=== PATIENT | male | born 1985 | race African-American/Black ===

== ENCOUNTER 2022-01-09 10:57 | Emergency (ER) | payer MEDICAID ==
[~2022-01-09] VITALS: Ht 188 cm; Wt 80.9 kg
[2022-01-09] MEDS ORDERED: PALI3TAB PO (11:47)
[2022-01-09 12:20] LABS: CHLORIDE 86 mEq/L (98-107)
[2022-01-09 12:26] LABS: HEMOGLOBIN. 8.4 g/dL (14.0-18.0); MEAN CORPUSCULAR HEMOGLOBIN 25.2 pg (28.0-32.0); MEAN CORPUSCULAR VOLUME 78.5 fL (80.0-94.0); MEAN PLATELET VOLUME 10.8 fl (7.4-10.4); PLATELET 113 x1000/uL (130-400); RED BLOOD CELL COUNT 3.31 mill/uL (4.7-6.1); RED CELL DISTRIBUTION WIDTH 15.3 % (11.6-14.6)
[2022-01-09] MEDS ORDERED: POTASSIUM CHLORIDE 20MEQ TABLET SR PO STA (12:43)
[2022-01-09 13:22] LABS: PLATELET ESTIMATE SLIGHTLY DECREASED
[2022-01-09] MEDS ORDERED: POTASSIUM CHLORIDE 20MEQ TABLET SR PO NR (16:00)
[2022-01-09 16:33] LABS: CLARITY URINE CLOUDY (CLEAR); COLOR URINE DARK YELLOW (YELLOW); KETONES URINE TRACE (NEGATIVE); LEUKOCYTE ESTERASE URINE 3+ (NEGATIVE); NITRITE URINE POSITIVE (NEGATIVE); OCCULT BLOOD URINE NEGATIVE (NEGATIVE); PROTEIN URINE 1+ (NEGATIVE); SPECIFIC GRAVITY URINE 1.019 (1.005-1.030)
[2022-01-09] MEDS ORDERED: SODIUM CHLORIDE 0.9% 1,000 ML IV ONE (17:00)
[2022-01-09] MEDS ORDERED: CEFTRIAXONE 1 G PREMIX 50 ML IV ONE (17:30)
[2022-01-09] MEDS ORDERED: NITR100C MT (18:15)
[2022-01-09] MEDS ORDERED: ACET-2708 PO (18:15)
[2022-01-09] MEDS ORDERED: POTA10CA42 PO (18:17)
[2022-01-09] MEDS ORDERED: POTA-79 PO (18:28)
[2022-01-09 19:00] VITALS: BP 109/70
== END 2022-01-09 19:27 | disposition home or self-care (01) ==
LOC: ER 10:57
DX: E87.6 Hypokalemia (principal); J06.9 Acute upper respiratory infection, unspecified; N39.0 Urinary tract infection, site not specified; D61.818 Other pancytopenia
CPT/HCPCS: 36415; 71045; 80053; 81003; 82962; 85025; 87077; 87086; 87186; 93005; 96361; 96365; 99285; J0696

== ENCOUNTER 2022-06-27 12:44 | Inpatient (IN) | payer MEDICAID ==
[~2022-06-27] VITALS: Ht 188 cm; Wt 64.9 kg
[2022-06-27] VITALS: BP 90/44
[~2022-06-27 12:44] MED LIST: ACET-2708 PO; NITR100C MT; PALI3TAB PO; POTA-79 PO
[2022-06-27 14:38] LABS: CHLORIDE 94 mEq/L (98-107)
[2022-06-27 14:39] LABS: HEMATOCRIT. 34.5 % (42.0-52.0); HEMOGLOBIN. 11.1 g/dL (14.0-18.0); MEAN CORPUSCULAR HEMOGLOBIN 27.3 pg (28.0-32.0); RED BLOOD CELL COUNT 4.06 mill/uL (4.7-6.1); RED CELL DISTRIBUTION WIDTH 17.8 % (11.6-14.6)
[2022-06-27 14:48] LABS: INR 1.1; PROTHROMBIN TIME 11.4 sec (9.6-11.0)
[2022-06-27 14:58] LABS: PLATELET 190 x1000/uL (130-400)
[2022-06-27 15:05] LABS: PLATELET ESTIMATE NORMAL
[2022-06-27] MEDS ORDERED: POTASSIUM CHLORIDE 20MEQ TABLET SR PO NR (15:15)
[2022-06-27] MEDS ORDERED: SODIUM CHLORIDE 0.9% 1,000 ML IV ONE (15:15)
[2022-06-27 21:00] VITALS: BP 100/66
[2022-06-27] MEDS ORDERED: CEFTRIAXONE 1 G PREMIX 50 ML IV SCH (22:30)
[2022-06-27] MEDS ORDERED: CEFTRIAXONE 1,000 MG in DEXTROSE 5% WATER 50 ML IV SCH (23:30)
[2022-06-28] MEDS ORDERED: AZITHROMYCIN 500 MG in DEXT 5% WATER 250 ML IV SCH ×2
[2022-06-28] MEDS: SODIUM CHL 0.9% + KCL 20MEQ/L 1,000 ML IV SCH ×3 (00:04→18:41)
[2022-06-28] MEDS: CEFTRIAXONE 1,000 MG in DEXTROSE 5% WATER 50 ML IV SCH (01:55)
[2022-06-28] MEDS: AZITHROMYCIN 500 MG in DEXT 5% WATER 250 ML IV SCH (02:53)
[2022-06-28 04:00] VITALS: BP 97/58
[2022-06-28 08:18] VITALS: BP 97/61
[2022-06-28 08:28] LABS: CHLORIDE 101 mEq/L (98-107)
[2022-06-28 08:31] LABS: HEMATOCRIT. 25.1 % (42.0-52.0); HEMOGLOBIN. 8.2 g/dL (14.0-18.0); MEAN CORPUSCULAR HEMOGLOBIN 27.4 pg (28.0-32.0); MEAN CORPUSCULAR VOLUME 84.4 fL (80.0-94.0); MEAN PLATELET VOLUME 10.3 fl (7.4-10.4); PLATELET 124 x1000/uL (130-400); RED BLOOD CELL COUNT 2.97 mill/uL (4.7-6.1); RED CELL DISTRIBUTION WIDTH 17.2 % (11.6-14.6)
[2022-06-28 12:00] VITALS: BP 93/56
[2022-06-28 12:05] LABS: PLATELET ESTIMATE SLIGHTLY DECREASED
[2022-06-28 16:00] VITALS: BP 96/67
[2022-06-28 20:00] VITALS: BP 118/76
[2022-06-28] MEDS ORDERED: IOHEXOL-300 100 ML BOTTLE ONE (20:35)
[2022-06-29] VITALS (7 sets, daily range): BP systolic 90–116; BP diastolic 43–72
[2022-06-29] MEDS: CEFTRIAXONE 1,000 MG in DEXTROSE 5% WATER 50 ML IV SCH (00:22)
[2022-06-29] MEDS: ACETAMINOPHEN 325MG TABLET PO PRN ×2 (01:01→18:09)
[2022-06-29] MEDS: AZITHROMYCIN 500 MG in DEXT 5% WATER 250 ML IV SCH (03:23)
[2022-06-29] MEDS: SODIUM CHL 0.9% + KCL 20MEQ/L 1,000 ML IV SCH ×2 (04:46→20:18)
[2022-06-29 13:33] LABS: CLARITY URINE CLEAR (CLEAR); COLOR URINE YELLOW (YELLOW); KETONES URINE NEGATIVE (NEGATIVE); LEUKOCYTE ESTERASE URINE NEGATIVE (NEGATIVE); NITRITE URINE NEGATIVE (NEGATIVE); OCCULT BLOOD URINE NEGATIVE (NEGATIVE); PH URINE 6.5 (4.5-8.0); PROTEIN URINE NEGATIVE (NEGATIVE); SPECIFIC GRAVITY URINE 1.016 (1.005-1.030)
[2022-06-29 13:54] LABS: *AMPHETAMINES SCREEN URINE NEGATIVE (NEGATIVE); *BARBITURATES SCREEN URINE NEGATIVE (NEGATIVE); *BENZODIAZEPINES SCREEN URINE NEGATIVE (NEGATIVE); *COCAINE SCREEN URINE NEGATIVE (NEGATIVE); CANNABINOID URINE SCREEN NEGATIVE (NEGATIVE); METHADONE URINE SCREEN NEGATIVE (NEGATIVE); OPIATES URINE SCREEN NEGATIVE (NEGATIVE); PHENCYCLIDINE URINE SCREEN NEGATIVE (NEGATIVE)
[2022-06-29] MEDS: MAGNESIUM OXIDE 400MG TABLET PO SCH (20:09)
[2022-06-30] VITALS: BP 104/51
[2022-06-30] MEDS: CEFTRIAXONE 1,000 MG in DEXTROSE 5% WATER 50 ML IV SCH (00:08)
[2022-06-30] MEDS: SODIUM CHL 0.9% + KCL 20MEQ/L 1,000 ML IV SCH ×3 (01:00→23:41)
[2022-06-30] MEDS: AZITHROMYCIN 500 MG in DEXT 5% WATER 250 ML IV SCH (03:38)
[2022-06-30 04:00] VITALS: BP 129/64
[2022-06-30 08:00] VITALS: BP 99/69
[2022-06-30] MEDS: MAGNESIUM OXIDE 400MG TABLET PO SCH (08:53)
[2022-06-30 09:20] LABS: HEMATOCRIT. 22.1 % (42.0-52.0); HEMOGLOBIN. 7.1 g/dL (14.0-18.0); MEAN CORPUSCULAR VOLUME 83.8 fL (80.0-94.0); MEAN PLATELET VOLUME 10.9 fl (7.4-10.4); PLATELET 122 x1000/uL (130-400); RED BLOOD CELL COUNT 2.64 mill/uL (4.7-6.1); RED CELL DISTRIBUTION WIDTH 17.4 % (11.6-14.6)
[2022-06-30 09:31] LABS: CHLORIDE 102 mEq/L (98-107)
[2022-06-30 12:00] VITALS: BP 94/59
[2022-06-30 12:38] LABS: PLATELET ESTIMATE SLIGHTLY DECREASED
[2022-06-30 14:08] LABS: HIV 1 ABS Reactive (Non Reactive); HIV 2 ABS Non Reactive (Non Reactive); HIV SCREEN 4G Preliminary Reactive (Non Reactive); INTERPRETATION HIV-1 Positive (.)
[2022-06-30 16:00] VITALS: BP 103/61
[2022-06-30 20:00] VITALS: BP 100/66
[2022-06-30] MEDS: GUAIFENESIN-DM 200MG-20MG/10ML UDC PO PRN (20:40)
[2022-07-01] VITALS: BP 111/67
[2022-07-01] MEDS: CEFTRIAXONE 1,000 MG in DEXTROSE 5% WATER 50 ML IV SCH (01:00)
[2022-07-01] MEDS: AZITHROMYCIN 500 MG in DEXT 5% WATER 250 ML IV SCH (02:55)
[2022-07-01] MEDS: GUAIFENESIN-DM 200MG-20MG/10ML UDC PO PRN ×2 (02:59→08:47)
[2022-07-01 04:00] VITALS: BP 104/62
[2022-07-01] MEDS: ACETAMINOPHEN 325MG TABLET PO PRN ×2 (05:16→16:12)
[2022-07-01 08:00] VITALS: BP 91/55
[2022-07-01] MEDS: MAGNESIUM OXIDE 400MG TABLET PO SCH (08:47)
[2022-07-01] MEDS: SODIUM CHL 0.9% + KCL 20MEQ/L 1,000 ML IV SCH ×2 (08:48→16:13)
[2022-07-01 12:00] VITALS: BP 94/53
[2022-07-01 12:08] LABS: HEMATOCRIT. 22.6 % (42.0-52.0); HEMOGLOBIN. 7.4 g/dL (14.0-18.0); MEAN CORPUSCULAR HEMOGLOBIN 27.5 pg (28.0-32.0); MEAN CORPUSCULAR VOLUME 84.3 fL (80.0-94.0); MEAN PLATELET VOLUME 10.5 fl (7.4-10.4); PLATELET 116 x1000/uL (130-400); RED BLOOD CELL COUNT 2.69 mill/uL (4.7-6.1)
[2022-07-01 13:09] LABS: PLATELET ESTIMATE SLIGHTLY DECREASED
[2022-07-01 16:00] VITALS: BP 91/60
[2022-07-01 20:00] VITALS: BP 91/60
[2022-07-02] VITALS: BP 120/82
[2022-07-02] MEDS: GUAIFENESIN-DM 200MG-20MG/10ML UDC PO PRN ×2 (00:07→21:42)
[2022-07-02] MEDS: CEFTRIAXONE 1,000 MG in DEXTROSE 5% WATER 50 ML IV SCH (01:05)
[2022-07-02] MEDS: AZITHROMYCIN 500 MG in DEXT 5% WATER 250 ML IV SCH (02:27)
[2022-07-02] MEDS: SODIUM CHL 0.9% + KCL 20MEQ/L 1,000 ML IV SCH ×3 (03:00→23:37)
[2022-07-02 04:00] VITALS: BP 90/46
[2022-07-02 08:00] VITALS: BP 96/65
[2022-07-02] MEDS: MAGNESIUM OXIDE 400MG TABLET PO SCH (09:16)
[2022-07-02 12:00] VITALS: BP 91/56
[2022-07-02] MEDS ORDERED: ONDANSETRON HCL 4MG/2ML INJ IV PRN (14:15)
[2022-07-02 16:00] VITALS: BP 97/59
[2022-07-02] MEDS: ACETAMINOPHEN 325MG TABLET PO PRN (17:13)
[2022-07-02 20:00] VITALS: BP 109/52
[2022-07-03] VITALS: BP 114/62
[2022-07-03 04:00] VITALS: BP 105/44
[2022-07-03 08:00] VITALS: BP 98/65
[2022-07-03] MEDS: MAGNESIUM OXIDE 400MG TABLET PO SCH (09:45)
[2022-07-03 12:00] VITALS: BP 96/58
[2022-07-03] MEDS: SODIUM CHL 0.9% + KCL 20MEQ/L 1,000 ML IV SCH (12:58)
[2022-07-03 14:07] LABS: HBSAG SCREEN Negative (Negative)
[2022-07-03 16:00] VITALS: BP 91/56
[2022-07-03 20:00] VITALS: BP 96/57
[2022-07-04] VITALS: BP 99/63
[2022-07-04 04:00] VITALS: BP 94/53
[2022-07-04] MEDS: SODIUM CHL 0.9% + KCL 20MEQ/L 1,000 ML IV SCH ×2 (04:10→15:08)
[2022-07-04 08:00] VITALS: BP 90/59
[2022-07-04] MEDS: MAGNESIUM OXIDE 400MG TABLET PO SCH (09:02)
[2022-07-04 10:07] LABS: % CD 3 POS. LYMPHOCYTES 65.3 % (57.5-86.2); % CD 4 POS. LYMPHOCYTES 0.9 % (30.8-58.5); % CD 8 POS. LYMPH 58.6 % (12.0-35.5); CD4/CD8 RATIO 0.02 (0.92-3.72)
[2022-07-04 12:00] VITALS: BP 88/51
[2022-07-04] MEDS ORDERED: SODIUM CHLORIDE 0.9% 500 ML IV ONE (13:00)
[2022-07-04 13:07] LABS: ABSOLUTE CD 3 65 /uL (622-2402); ABSOLUTE CD 4 HELPER 1 /uL (359-1519); ABSOLUTE CD 8 SUPPRESSOR 59 /uL (109-897); ABSOLUTE LYMPHOCYTES 0.1 x10E3/uL (0.7-3.1); ABSOLUTE MONOCYTES 0.2 x10E3/uL (0.1-0.9); ABSOLUTE NEUTROPHILS 0.6 x10E3/uL (1.4-7.0); BASOPHILS 0 % (Not Estab.); HEMATOCRIT 19.7 % (37.5-51.0); HEMATOLOGY COMMENT Note: (.); HEMOGLOBIN 6.1 g/dL (13.0-17.7); IMMATURE GRANULOCYTES 0 % (Not Estab.); LYMPHOCYTES 15 % (Not Estab.); MEAN CORPUSCULAR HEMOGLOBIN 26.5 pg (26.6-33.0); MEAN CORPUSCULAR VOLUME 86 fL (79-97); MONOCYTES 21 % (Not Estab.); NEUTROPHILS 64 % (Not Estab.); PLATELETS 164 x10E3/uL (150-450); RED CELL DISTRIBUTION WIDTH 16.6 % (11.6-15.4)
[2022-07-04 16:00] VITALS: BP 100/61
[2022-07-04 20:00] VITALS: BP 84/54
[2022-07-05] VITALS: BP 86/52
[2022-07-05] MEDS: SODIUM CHL 0.9% + KCL 20MEQ/L 1,000 ML IV SCH ×2 (00:52→10:52)
[2022-07-05 04:00] VITALS: BP 85/51
[2022-07-05] MEDS ORDERED: ATOVAQUONE 750MG/5ML PACKET PO SCH (07:10)
[2022-07-05 08:00] VITALS: BP 93/57
[2022-07-05] MEDS: MAGNESIUM OXIDE 400MG TABLET PO SCH (08:26)
[2022-07-05 12:00] VITALS: BP 90/52
[2022-07-05] MEDS: ACETAMINOPHEN 325MG TABLET PO PRN (12:16)
[2022-07-05] MEDS: ATOVAQUONE 750 MG/5 ML UDC PO SCH ×2 (12:16→16:50)
[2022-07-05 16:00] VITALS: BP 90/52
[2022-07-05 20:00] VITALS: BP 103/48
[2022-07-05 22:20] LABS: CHLORIDE 103 mEq/L (98-107)
[2022-07-06] VITALS (9 sets, daily range): BP systolic 90–165; BP diastolic 49–89
[2022-07-06] MEDS: ATOVAQUONE 750 MG/5 ML UDC PO SCH ×3 (07:10→16:34)
[2022-07-06 07:37] LABS: HEMATOCRIT. 21.9 % (42.0-52.0); HEMOGLOBIN. 7.2 g/dL (14.0-18.0); MEAN CORPUSCULAR HEMOGLOBIN 27.5 pg (28.0-32.0); MEAN CORPUSCULAR VOLUME 83.7 fL (80.0-94.0); MEAN PLATELET VOLUME 10.1 fl (7.4-10.4); PLATELET 176 x1000/uL (130-400); RED BLOOD CELL COUNT 2.62 mill/uL (4.7-6.1); RED CELL DISTRIBUTION WIDTH 16.4 % (11.6-14.6)
[2022-07-06 08:45] LABS: PLATELET ESTIMATE NORMAL
[2022-07-06] MEDS: MAGNESIUM OXIDE 400MG TABLET PO SCH (09:53)
[2022-07-06] MEDS ORDERED: LIDOCAINE HCL 1% 10 MG/ML 10ML VIAL ONE (10:48)
[2022-07-06] MEDS ORDERED: LIDOCAINE HCL 1% 50ML VIAL (10MG/ML) ONE (13:21)
[2022-07-06] MEDS ORDERED: PROPOFOL 200MG/20ML VIAL IV ONE (13:22)
[2022-07-06] MEDS ORDERED: FENTANYL CITRATE/PF 50MCG/ML 2ML VIAL ONE (13:22)
[2022-07-06] MEDS ORDERED: MIDAZOLAM HCL 2 MG/2 ML VIAL ONE (13:22)
[2022-07-07] VITALS: BP 87/49
[2022-07-07 04:00] VITALS: BP 91/60
[2022-07-07] MEDS: ATOVAQUONE 750 MG/5 ML UDC PO SCH ×2 (06:16→17:29)
[2022-07-07 08:00] VITALS: BP 90/48
[2022-07-07] MEDS: MAGNESIUM OXIDE 400MG TABLET PO SCH (08:45)
[2022-07-07 12:00] VITALS: BP 94/56
[2022-07-07 13:56] LABS: VITAMIN B12 SERUM 544 pg/mL (211-911)
[2022-07-07 16:00] VITALS: BP 91/58
[2022-07-07 20:00] VITALS: BP 91/55
[2022-07-08] VITALS: BP 89/55
[2022-07-08 04:00] VITALS: BP 89/55
[2022-07-08 06:26] LABS: HEMATOCRIT. 24.2 % (42.0-52.0); HEMOGLOBIN. 7.9 g/dL (14.0-18.0); MEAN CORPUSCULAR HEMOGLOBIN 27.7 pg (28.0-32.0); MEAN CORPUSCULAR VOLUME 84.4 fL (80.0-94.0); MEAN PLATELET VOLUME 10.2 fl (7.4-10.4); PLATELET 158 x1000/uL (130-400); RED BLOOD CELL COUNT 2.86 mill/uL (4.7-6.1); RED CELL DISTRIBUTION WIDTH 16.4 % (11.6-14.6)
[2022-07-08 06:37] LABS: CHLORIDE 101 mEq/L (98-107)
[2022-07-08 08:00] VITALS: BP 92/52
[2022-07-08] MEDS: MAGNESIUM OXIDE 400MG TABLET PO SCH (08:26)
[2022-07-08] MEDS: ATOVAQUONE 750 MG/5 ML UDC PO SCH ×2 (08:26→17:19)
[2022-07-08 12:00] VITALS: BP 93/45
[2022-07-08 13:30] LABS: PLATELET ESTIMATE NORMAL
[2022-07-08 16:00] VITALS: BP 92/43
[2022-07-08 20:00] VITALS: BP 89/50
[2022-07-09] VITALS: BP 92/56
[2022-07-09] MEDS: ACETAMINOPHEN 325MG TABLET PO PRN (00:30)
[2022-07-09 04:00] VITALS: BP 89/54
[2022-07-09 08:00] VITALS: BP 92/54
[2022-07-09] MEDS: MAGNESIUM OXIDE 400MG TABLET PO SCH (09:55)
[2022-07-09] MEDS: ATOVAQUONE 750 MG/5 ML UDC PO SCH ×2 (09:55→17:11)
[2022-07-09 12:00] VITALS: BP 88/51
[2022-07-09 16:00] VITALS: BP 94/60
[2022-07-09 20:00] VITALS: BP 94/62
[2022-07-10] VITALS: BP 89/54
[2022-07-10 04:00] VITALS: BP 88/58
[2022-07-10] MEDS: ATOVAQUONE 750 MG/5 ML UDC PO SCH ×2 (06:07→16:33)
[2022-07-10 08:00] VITALS: BP 93/59
[2022-07-10] MEDS: MAGNESIUM OXIDE 400MG TABLET PO SCH (09:42)
[2022-07-10 11:52] LABS: INR 1.1; PROTHROMBIN TIME 11.4 sec (9.6-11.0)
[2022-07-10 12:00] VITALS: BP 92/56
[2022-07-10 16:40] VITALS: BP 103/67
[2022-07-10] MEDS ORDERED: GADOTERATE MEGLUMINE 5 MMOL/10 ML VIAL IV ONE ×2 (16:44)
[2022-07-10 20:00] VITALS: BP 90/53
[2022-07-11] VITALS: BP 94/61
[2022-07-11 04:00] VITALS: BP 88/56
[2022-07-11] MEDS: ATOVAQUONE 750 MG/5 ML UDC PO SCH ×2 (06:08→18:25)
[2022-07-11 08:00] VITALS: BP 90/60
[2022-07-11] MEDS: MAGNESIUM OXIDE 400MG TABLET PO SCH (09:48)
[2022-07-11 12:00] VITALS: BP 88/50
[2022-07-11 13:11] LABS: QFT MITOGEN VALUE 0.28 IU/mL (.); QFT TB GOLD PLUS Indeterminate (Negative); QFT TB1 AG VALUE 0.12 IU/mL (.)
[2022-07-11 16:00] VITALS: BP 93/59
[2022-07-11 20:00] VITALS: BP 95/57
[2022-07-12] VITALS: BP 94/51
[2022-07-12 04:00] VITALS: BP 95/53
[2022-07-12] MEDS: ATOVAQUONE 750 MG/5 ML UDC PO SCH ×2 (06:14→17:04)
[2022-07-12 08:00] VITALS: BP 93/58
[2022-07-12] MEDS: MAGNESIUM OXIDE 400MG TABLET PO SCH (10:01)
[2022-07-12 12:00] VITALS: BP 94/54
[2022-07-12 16:00] VITALS: BP 97/57
[2022-07-12 17:11] LABS: *HIV-1 RNA BY PCR 136920 copies/mL (.)
[2022-07-12 17:24] LABS: HEMATOCRIT. 24.2 % (42.0-52.0); HEMOGLOBIN. 7.8 g/dL (14.0-18.0); MEAN CORPUSCULAR VOLUME 83.4 fL (80.0-94.0); MEAN PLATELET VOLUME 10.3 fl (7.4-10.4); PLATELET 155 x1000/uL (130-400); RED CELL DISTRIBUTION WIDTH 15.8 % (11.6-14.6)
[2022-07-12 17:51] LABS: CHLORIDE 100 mEq/L (98-107); PLATELET ESTIMATE NORMAL
[2022-07-12 20:00] VITALS: BP 96/62
[2022-07-13] VITALS: BP 97/61
[2022-07-13 04:00] VITALS: BP_SYST 115; BP_SYST 91; BP_DIAS 59; BP_DIAS 75
[2022-07-13 08:00] VITALS: BP 96/61
[2022-07-13] MEDS: ATOVAQUONE 750 MG/5 ML UDC PO SCH ×2 (08:56→16:53)
[2022-07-13] MEDS: MAGNESIUM OXIDE 400MG TABLET PO SCH (08:56)
[2022-07-13 12:00] VITALS: BP 92/54
[2022-07-13 16:00] VITALS: BP 91/56
[2022-07-13 20:00] VITALS: BP 96/60
[2022-07-14] VITALS: BP 92/53
[2022-07-14 04:00] VITALS: BP 102/71
[2022-07-14 08:00] VITALS: BP 96/62
[2022-07-14] MEDS: MAGNESIUM OXIDE 400MG TABLET PO SCH (09:24)
[2022-07-14] MEDS: ATOVAQUONE 750 MG/5 ML UDC PO SCH ×2 (09:24→17:32)
[2022-07-14 12:00] VITALS: BP 98/60
[2022-07-14 16:00] VITALS: BP 96/54
[2022-07-14 20:00] VITALS: BP 96/58
[2022-07-15] VITALS: BP 92/57
[2022-07-15 04:00] VITALS: BP 91/51
[2022-07-15] MEDS: ATOVAQUONE 750 MG/5 ML UDC PO SCH ×2 (06:18→18:22)
[2022-07-15 08:00] VITALS: BP 94/57
[2022-07-15] MEDS: MAGNESIUM OXIDE 400MG TABLET PO SCH (08:58)
[2022-07-15 12:00] VITALS: BP 93/56
[2022-07-15 16:00] VITALS: BP 91/56
[2022-07-15] MEDS: ACETAMINOPHEN 325MG TABLET PO PRN (18:39)
[2022-07-15 20:00] VITALS: BP 93/60
[2022-07-16] VITALS: BP 96/56
[2022-07-16 04:00] VITALS: BP 91/60
[2022-07-16 05:44] LABS: HEMATOCRIT. 22.1 % (42.0-52.0); HEMOGLOBIN. 7.3 g/dL (14.0-18.0); MEAN CORPUSCULAR HEMOGLOBIN 27.3 pg (28.0-32.0); MEAN PLATELET VOLUME 10.2 fl (7.4-10.4); PLATELET 151 x1000/uL (130-400); RED BLOOD CELL COUNT 2.66 mill/uL (4.7-6.1); RED CELL DISTRIBUTION WIDTH 15.4 % (11.6-14.6)
[2022-07-16] MEDS: ATOVAQUONE 750 MG/5 ML UDC PO SCH ×2 (06:49→17:22)
[2022-07-16 08:00] VITALS: BP 95/57
[2022-07-16 09:01] LABS: CHLORIDE 103 mEq/L (98-107)
[2022-07-16] MEDS: MAGNESIUM OXIDE 400MG TABLET PO SCH (09:03)
[2022-07-16 12:00] VITALS: BP 92/63
[2022-07-16 14:02] LABS: PLATELET ESTIMATE NORMAL
[2022-07-16 16:00] VITALS: BP 90/53
[2022-07-16] MEDS: ACETAMINOPHEN 325MG TABLET PO PRN (16:26)
[2022-07-16 20:00] VITALS: BP 89/55
[2022-07-17] VITALS: BP 89/56
[2022-07-17 04:00] VITALS: BP 98/62
[2022-07-17] MEDS: ATOVAQUONE 750 MG/5 ML UDC PO SCH ×2 (06:11→16:42)
[2022-07-17 08:00] VITALS: BP 92/56
[2022-07-17] MEDS: MAGNESIUM OXIDE 400MG TABLET PO SCH (08:25)
[2022-07-17 12:00] VITALS: BP 102/61
[2022-07-17 16:00] VITALS: BP 98/58
[2022-07-17 20:00] VITALS: BP 93/58
[2022-07-17 20:28] LABS: CHLORIDE 100 mEq/L (98-107)
[2022-07-17 20:55] LABS: HEMATOCRIT. 28.6 % (42.0-52.0); HEMOGLOBIN. 9.2 g/dL (14.0-18.0); MEAN CORPUSCULAR HEMOGLOBIN 26.8 pg (28.0-32.0); MEAN CORPUSCULAR VOLUME 83.3 fL (80.0-94.0); MEAN PLATELET VOLUME 10.6 fl (7.4-10.4); PLATELET 153 x1000/uL (130-400); RED BLOOD CELL COUNT 3.44 mill/uL (4.7-6.1); RED CELL DISTRIBUTION WIDTH 15.4 % (11.6-14.6)
[2022-07-17 22:38] LABS: PLATELET ESTIMATE NORMAL
[2022-07-18] VITALS: BP 89/47
[2022-07-18 04:00] VITALS: BP 93/55
[2022-07-18] MEDS: ATOVAQUONE 750 MG/5 ML UDC PO SCH ×2 (06:21→16:53)
[2022-07-18 08:00] VITALS: BP 98/59
[2022-07-18 08:12] LABS: CHLORIDE 102 mEq/L (98-107)
[2022-07-18] MEDS: MAGNESIUM OXIDE 400MG TABLET PO SCH (08:44)
[2022-07-18 11:31] LABS: HEMATOCRIT. 27.8 % (42.0-52.0); HEMOGLOBIN. 8.8 g/dL (14.0-18.0); MEAN CORPUSCULAR HEMOGLOBIN 26.8 pg (28.0-32.0); MEAN CORPUSCULAR VOLUME 84.4 fL (80.0-94.0); MEAN PLATELET VOLUME 10.7 fl (7.4-10.4); PLATELET 135 x1000/uL (130-400); RED BLOOD CELL COUNT 3.29 mill/uL (4.7-6.1); RED CELL DISTRIBUTION WIDTH 15.7 % (11.6-14.6)
[2022-07-18 12:00] VITALS: BP 102/60
[2022-07-18 12:56] LABS: PLATELET ESTIMATE NORMAL
[2022-07-18 16:00] VITALS: BP 88/58
[2022-07-18 20:00] VITALS: BP 87/51
[2022-07-19] VITALS: BP 91/55
[2022-07-19 04:00] VITALS: BP 95/59
[2022-07-19] MEDS: ATOVAQUONE 750 MG/5 ML UDC PO SCH ×2 (06:14→16:57)
[2022-07-19 08:00] VITALS: BP 97/53
[2022-07-19 08:12] LABS: CHLORIDE 100 mEq/L (98-107)
[2022-07-19 08:45] LABS: HEMATOCRIT. 24.6 % (42.0-52.0); HEMOGLOBIN. 7.9 g/dL (14.0-18.0); MEAN CORPUSCULAR HEMOGLOBIN 27.2 pg (28.0-32.0); MEAN CORPUSCULAR VOLUME 84.3 fL (80.0-94.0); MEAN PLATELET VOLUME 10.4 fl (7.4-10.4); PLATELET 131 x1000/uL (130-400); RED BLOOD CELL COUNT 2.92 mill/uL (4.7-6.1); RED CELL DISTRIBUTION WIDTH 15.2 % (11.6-14.6)
[2022-07-19] MEDS: MAGNESIUM OXIDE 400MG TABLET PO SCH (08:46)
[2022-07-19 12:00] VITALS: BP 109/52
[2022-07-19 13:46] LABS: PLATELET ESTIMATE NORMAL
[2022-07-19 16:00] VITALS: BP 120/60
== END 2022-07-19 20:48 | disposition left against medical advice (07) | DRG 890 ==
LOC: ER 12:44 → 6WST 17:33 → EDBEDREQ 17:36 → EDBEDREQSVC 17:36 → EDBEDREQTM 17:36 → ENRESERV 19:16 → 7EST 06-29 17:52
PROVIDERS: ADMIT Internal Medicine; ATTEND Internal Medicine
PROC: 079T3ZX Drainage of Bone Marrow, Percutaneous Approach, Diagnostic (ICD-10-PCS; principal; 2022-07-06)
DX: A41.89 Other specified sepsis (principal); B20 Human immunodeficiency virus [HIV] disease; B45.1 Cerebral cryptococcosis; J12.82 Pneumonia due to coronavirus disease 2019; E43 Unspecified severe protein-calorie malnutrition; U07.1 COVID-19; K76.6 Portal hypertension; C85.90 Non-Hodgkin lymphoma, unspecified, unspecified site; E87.8 Other disorders of electrolyte and fluid balance, not elsewhere classified; R62.7 Adult failure to thrive; F31.9 Bipolar disorder, unspecified; E87.1 Hypo-osmolality and hyponatremia; E87.6 Hypokalemia; F17.290 Nicotine dependence, other tobacco product, uncomplicated; Z88.2 Allergy status to sulfonamides; Z79.899 Other long term (current) drug therapy; Z71.6 Tobacco abuse counseling; Z68.1 Body mass index [BMI] 19.9 or less, adult
CPT/HCPCS: 36415; 38220; 70553; 71045; 71260; 74177; 76700; 80048; 80053; 80305; 81003; 82607; 82962; 83735; 84145; 84443; 85025; 85060; 85097; 86359; 86360; 86480; 86592; 86701; 86702; 86705; 86709; 86803; 86850; 86900; 87340; 87389; 87426; 87536; 87804; 87899; 88313; 93005; 99285; A9577; J0456; J0696; J2250; J2405; J2704; J3010; J3480; J3490; J7060; Q9967